=== PATIENT | male | born 1940 | race Caucasian/White ===

== ENCOUNTER 2019-11-14 12:21 | Emergency (ER) | payer OTHER ==
[~2019-11-14] VITALS: Ht 180.3 cm; Wt 72.6 kg
[~2019-11-14 12:21] MED LIST: ALDACTONE50 MG PO; CARAFATE1 GM; CARAFATE1 GM/10 ML PO; CRESTOR10 MG PO; DYAZIDE 37.5-21 EACH; HYDROCODON-ACE1 EAC9; NAPROXEN500 MG PO; PANTOPRAZOLE SO40 MG PO; PROPRANOLOL HCL10 MG PO; PROTONIX40 MG; ULTRAM 50MG50 MG PO
--- NOTE | 2019-11-14 14:22 | Diagnostic Imaging Report ---
EXAMINATION: CHEST SINGLE (PORTABLE) INDICATION: Cough/congestion COMPARISON: None FINDINGS: TUBES and LINES: None. LUNGS: Lungs are well inflated. There are bibasilar atelectasis. There is no evidence of pneumonia or pulmonary edema. PLEURA: No pleural effusion or pneumothorax. HEART AND MEDIASTINUM: The cardiomediastinal silhouette is unremarkable. BONES AND SOFT TISSUES: No acute osseous lesion. Soft tissues are unremarkable. UPPER ABDOMEN: No free air under the diaphragm. IMPRESSION: No acute thoracic abnormality. Signed by: Dr. Dayami Bray M.D. on 11/14/2019 2:20 PM
[2019-11-14] MEDS ORDERED: SODIUM CHLORIDE 0.9% 1000ML 1,000 ML IV SCH (14:31)
[2019-11-14] MEDS: IPRATROPIUM BROMIDE 0.02% 2.5 ML NEB NEB STA (14:48)
[2019-11-14] MEDS: ALBUTEROL SULF 0.083% NEB SOLN 3 ML NEB NEB STA (14:48)
[2019-11-14] MEDS: SODIUM CHLORIDE 0.9% 1000ML 1,000 ML IV STA (15:25)
[2019-11-14] MEDS: FAMOTIDINE 20 MG/2 ML VIAL IV ONE (15:25)
[2019-11-14] MEDS: ACETAMINOPHEN 325 MG TAB PO ONE (15:25)
[2019-11-14] MEDS: KETOROLAC TROMETHAMINE 30 MG/ML VIAL IV ONE (15:25)
[2019-11-14] MEDS: AZTREONAM 2GM/NS 100ML 100 ML IV ONE (15:26)
[2019-11-14 15:45] LABS: BASOPHILS % 0.3 % (0.0-1.0); EOSINOPHILS # (AUTO) 0.4 (0.0-0.4); EOSINOPHILS % 6.3 % (0.0-6.0); HEMOGLOBIN 13.8 g/dL (14.0-18.0); LYMPHOCYTES # (AUTO) 2.1 (1.0-3.2); LYMPHOCYTES % 31.3 % (18.0-39.1); MEAN CORPUSCULAR HEMOGLOBIN 36.6 pg (28-32); MEAN CORPUSCULAR HGB CONC 34.5 g/dL (31-35); MEAN CORPUSCULAR VOLUME 106.1 fL (81-99); MONOCYTES # (AUTO) 0.6 (0.2-0.8); MONOCYTES % 9.2 % (4.4-11.3); NEUTROPHILS # (AUTO) 3.5 (2.1-6.9); NEUTROPHILS % 52.4 % (38.7-80.0); PLATELET COUNT 82 x10e3/uL (140-360); RED BLOOD COUNT 3.77 x10e6/uL (4.3-5.7); RED CELL DISTRIBUTION WIDTH 13.8 % (11.7-14.4)
[2019-11-14 16:03] LABS: ALANINE AMINOTRANSFERASE 32 IU/L (0-55); ALBUMIN 3.1 g/dL (3.5-5.0); ALBUMIN/GLOBULIN RATIO 0.8 (0.8-2.0); ALKALINE PHOSPHATASE 122 IU/L (40-150); ANION GAP 13.6 mmol/L (8-16); BLOOD UREA NITROGEN 6 mg/dL (7-26); BUN/CREATININE RATIO 8 (6-25); CARBON DIOXIDE 23 mmol/L (22-29); CHLORIDE 107 mmol/L (98-107); CREATININE, SERUM 0.76 mg/dL (0.72-1.25); EST GLOMERULAR FILTRATION RATE > 60 ML/MIN (60-); GLUCOSE 93 mg/dL (74-118); POTASSIUM 3.6 mmol/L (3.5-5.1); SODIUM 140 mmol/L (136-145)
== END 2019-11-14 17:29 | disposition home or self-care (01) ==
LOC: ER 12:21
DX: R05 Cough (principal); J20.9 Acute bronchitis, unspecified; J06.9 Acute upper respiratory infection, unspecified
CPT/HCPCS: 36415; 71045; 80053; 85025; 87400; 94640; 94664; 99284; J1885; J7030

== ENCOUNTER 2020-06-27 21:58 | Inpatient (IN) | payer OTHER ==
[~2020-06-27] VITALS: Ht 180.3 cm; Wt 72.6 kg
[2020-06-27] MEDS ORDERED: VANCOMYCIN 1GM/NS 250 ML 250 ML IV ONE (23:15)
[2020-06-27] MEDS ORDERED: LEVOFLOXACIN 500MG/D5W 100ML 100 ML IV ONE (23:15)
[2020-06-27 23:38] LABS: BASOPHILS # (AUTO) 0.1 (0.0-0.1); BASOPHILS % 0.8 % (0.0-1.0); EOSINOPHILS # (AUTO) 0.3 (0.0-0.4); EOSINOPHILS % 5.3 % (0.0-6.0); HEMATOCRIT 34.7 % (38.2-49.6); HEMOGLOBIN 11.8 g/dL (14.0-18.0); LYMPHOCYTES # (AUTO) 1.2 (1.0-3.2); LYMPHOCYTES % 19.5 % (18.0-39.1); MEAN CORPUSCULAR HEMOGLOBIN 35.8 pg (28-32); MEAN CORPUSCULAR VOLUME 105.2 fL (81-99); MONOCYTES # (AUTO) 0.6 (0.2-0.8); MONOCYTES % 9.1 % (4.4-11.3); NEUTROPHILS # (AUTO) 3.9 (2.1-6.9); NEUTROPHILS % 64.8 % (38.7-80.0); PLATELET COUNT 62 x10e3/uL (140-360); RED CELL DISTRIBUTION WIDTH 14.5 % (11.7-14.4)
[2020-06-27] MEDS ORDERED: MORPHINE SULFATE INJ 4 MG/ML INJ 1ML IV STA (23:52)
[2020-06-27 23:59] LABS: ALANINE AMINOTRANSFERASE 21 IU/L (0-55); ALBUMIN 3.2 g/dL (3.5-5.0); ALBUMIN/GLOBULIN RATIO 1.2 (0.8-2.0); ALKALINE PHOSPHATASE 99 IU/L (40-150); BLOOD UREA NITROGEN 10 mg/dL (7-26); BUN/CREATININE RATIO 12 (6-25); CALCIUM 9.2 mg/dL (8.4-10.2); CARBON DIOXIDE 24 mmol/L (22-29); CHLORIDE 109 mmol/L (98-107); CREATININE, SERUM 0.82 mg/dL (0.72-1.25); EST GLOMERULAR FILTRATION RATE > 60 ML/MIN (60-); GLUCOSE 118 mg/dL (74-118); SODIUM 138 mmol/L (136-145)
[2020-06-28] VITALS (9 sets, daily range): BP systolic 101–160; BP diastolic 60–99
[2020-06-28] MEDS ORDERED: ONDANSETRON HCL 4 MG ORAL DISINTEGRATING TAB PO ONE
[2020-06-28] MEDS: CLINDAMYCIN 600MG / 50ML 50 ML IV SCH ×4 (00:58→22:17)
[2020-06-28] MEDS ORDERED: ONDANSETRON HCL INJ 2MG/ML 2ML 2 MG/ML VIAL IV PRN (01:30)
[2020-06-28] MEDS ORDERED: SODIUM CHLORIDE FLUSH 10 ML SYR INJ PRN (01:30)
[2020-06-28] MEDS ORDERED: LEVOFLOXACIN 500MG/D5W 100ML 100 ML IV SCH ×2 (01:30→21:00)
[2020-06-28] MEDS: MORPHINE SULFATE INJ 4 MG/ML INJ 1ML IV PRN ×2 (05:00→14:18)
[2020-06-28] MEDS ORDERED: SODIUM CHLORIDE 0.9% 250ML 250 ML ONE (06:50)
[2020-06-28] MEDS: PROPRANOLOL HCL 10 MG TAB PO SCH ×2 (10:06→16:50)
[2020-06-28] MEDS: PANTOPRAZOLE SOD 40 MG TABEC PO SCH (10:06)
[2020-06-28] MEDS: HYDROCODONE/APAP 10MG-325MG TAB PO PRN (10:07)
[2020-06-28] MEDS: AZTREONAM 1 GM/NS 50 ML 50 ML IV SCH ×2 (10:31→21:38)
[2020-06-28] MEDS: SUCRALFATE 1 GM/10 ML SUSP PO SCH ×3 (12:25→20:16)
[2020-06-28] MEDS: SIMVASTATIN 20 MG TAB PO SCH (20:16)
[2020-06-29] VITALS (7 sets, daily range): BP systolic 102–132; BP diastolic 50–83
[2020-06-29] MEDS: ACETAMINOPHEN 325 MG TAB PO PRN (05:29)
[2020-06-29] MEDS: CLINDAMYCIN 600MG / 50ML 50 ML IV SCH ×3 (05:29→20:46)
[2020-06-29 06:41] LABS: BASOPHILS % 0.6 % (0.0-1.0); EOSINOPHILS # (AUTO) 0.3 (0.0-0.4); EOSINOPHILS % 5.5 % (0.0-6.0); HEMATOCRIT 31.3 % (38.2-49.6); HEMOGLOBIN 10.6 g/dL (14.0-18.0); LYMPHOCYTES # (AUTO) 1.8 (1.0-3.2); LYMPHOCYTES % 28.7 % (18.0-39.1); MEAN CORPUSCULAR HEMOGLOBIN 36.7 pg (28-32); MEAN CORPUSCULAR HGB CONC 33.9 g/dL (31-35); MEAN CORPUSCULAR VOLUME 108.3 fL (81-99); MONOCYTES # (AUTO) 0.6 (0.2-0.8); MONOCYTES % 10.3 % (4.4-11.3); NEUTROPHILS # (AUTO) 3.4 (2.1-6.9); NEUTROPHILS % 54.6 % (38.7-80.0); PLATELET COUNT 60 x10e3/uL (140-360); RED BLOOD COUNT 2.89 x10e6/uL (4.3-5.7); RED CELL DISTRIBUTION WIDTH 14.7 % (11.7-14.4)
[2020-06-29] MEDS ORDERED: SODIUM CHLORIDE 0.9% 250ML 250 ML ONE (07:29)
[2020-06-29] MEDS: PANTOPRAZOLE SOD 40 MG TABEC PO SCH (08:54)
[2020-06-29] MEDS: SUCRALFATE 1 GM/10 ML SUSP PO SCH ×4 (08:54→20:20)
[2020-06-29] MEDS: PROPRANOLOL HCL 10 MG TAB PO SCH ×2 (08:55→16:26)
[2020-06-29] MEDS: AZTREONAM 1 GM/NS 50 ML 50 ML IV SCH ×2 (08:55→20:20)
[2020-06-29 10:55] LABS: PLATELET ESTIMATE MODERATELY DECREASED; PLATELET MORPHOLOGY COMMENT NORMAL; POLYCHROMASIA FEW; RBC MORPHOLOGY COMMENT ABNORMAL
[2020-06-29] MEDS: HYDROCODONE/APAP 10MG-325MG TAB PO PRN (11:38)
[2020-06-29] MEDS ORDERED: ONDANSETRON HCL 4 MG ORAL DISINTEGRATING TAB PO PRN (14:30)
[2020-06-29] MEDS: SIMVASTATIN 20 MG TAB PO SCH (20:20)
[2020-06-30] VITALS (8 sets, daily range): BP systolic 91–146; BP diastolic 49–71
[2020-06-30] MEDS: CLINDAMYCIN 600MG / 50ML 50 ML IV SCH ×3 (05:42→22:10)
[2020-06-30] MEDS: SUCRALFATE 1 GM/10 ML SUSP PO SCH ×4 (08:45→20:45)
[2020-06-30] MEDS: PROPRANOLOL HCL 10 MG TAB PO SCH ×2 (08:45→16:55)
[2020-06-30] MEDS: PANTOPRAZOLE SOD 40 MG TABEC PO SCH (08:45)
[2020-06-30] MEDS: HYDROCODONE/APAP 10MG-325MG TAB PO PRN (09:15)
[2020-06-30] MEDS ORDERED: ALBUTEROL/IPRATROPIUM 3 ML NEB NEB PRN (09:30)
[2020-06-30] MEDS: AZTREONAM 1 GM/NS 50 ML 50 ML IV SCH ×2 (09:44→20:46)
[2020-06-30] MEDS ORDERED: IOPAMIDOL 370 MG/ML 200 ML INFUS..BTL INJ ONE (12:04)
[2020-06-30] MEDS ORDERED: SODIUM CHLORIDE 0.9% 50ML 50 ML ONE (12:04)
[2020-06-30] MEDS: MORPHINE SULFATE INJ 4 MG/ML INJ 1ML IV PRN ×2 (15:10→22:11)
[2020-06-30] MEDS: DOXYCYCLINE HYCLATE TABLET 100 MG TAB PO SCH (17:00)
[2020-06-30] MEDS: SIMVASTATIN 20 MG TAB PO SCH (20:45)
[2020-07-01] VITALS (9 sets, daily range): BP systolic 66–135; BP diastolic 41–75
[2020-07-01] MEDS: ACETAMINOPHEN 325 MG TAB PO PRN (00:10)
[2020-07-01] MEDS: CLINDAMYCIN 600MG / 50ML 50 ML IV SCH (04:47)
[2020-07-01 06:06] LABS: BASOPHILS % 0.6 % (0.0-1.0); EOSINOPHILS # (AUTO) 0.4 (0.0-0.4); EOSINOPHILS % 4.8 % (0.0-6.0); HEMATOCRIT 33.6 % (38.2-49.6); HEMOGLOBIN 11.1 g/dL (14.0-18.0); LYMPHOCYTES # (AUTO) 2.1 (1.0-3.2); LYMPHOCYTES % 29.5 % (18.0-39.1); MEAN CORPUSCULAR HEMOGLOBIN 36.2 pg (28-32); MEAN CORPUSCULAR VOLUME 109.4 fL (81-99); MONOCYTES # (AUTO) 0.8 (0.2-0.8); MONOCYTES % 11.1 % (4.4-11.3); NEUTROPHILS # (AUTO) 3.9 (2.1-6.9); NEUTROPHILS % 53.4 % (38.7-80.0); PLATELET COUNT 84 x10e3/uL (140-360); RED BLOOD COUNT 3.07 x10e6/uL (4.3-5.7); RED CELL DISTRIBUTION WIDTH 14.9 % (11.7-14.4)
[2020-07-01 06:28] LABS: ANION GAP 8.1 mmol/L (8-16); BLOOD UREA NITROGEN 16 mg/dL (7-26); BUN/CREATININE RATIO 19 (6-25); CARBON DIOXIDE 23 mmol/L (22-29); CHLORIDE 111 mmol/L (98-107); CREATININE, SERUM 0.86 mg/dL (0.72-1.25); EST GLOMERULAR FILTRATION RATE > 60 ML/MIN (60-); GLUCOSE 104 mg/dL (74-118); POTASSIUM 4.1 mmol/L (3.5-5.1); SODIUM 138 mmol/L (136-145)
[2020-07-01] MEDS ORDERED: SODIUM CHLORIDE 0.9% 500ML 500 ML IV ONE ×2 (06:40→06:45)
[2020-07-01] MEDS: SUCRALFATE 1 GM/10 ML SUSP PO SCH (07:30)
[2020-07-01] MEDS: PANTOPRAZOLE SOD 40 MG TABEC PO SCH (09:00)
[2020-07-01] MEDS: DOXYCYCLINE HYCLATE TABLET 100 MG TAB PO SCH ×2 (09:00→16:42)
[2020-07-01] MEDS ORDERED: SPIRONOLACTONE 25 MG TAB PO SCH (09:00)
[2020-07-01] MEDS ORDERED: FUROSEMIDE INJ 10 MG/ML 4 ML VIAL IV SCH (09:00)
[2020-07-01] MEDS: PROPRANOLOL HCL 10 MG TAB PO SCH (09:00)
[2020-07-01] MEDS: SPIRONOLACTONE 25 MG TAB PO SCH (10:00)
[2020-07-01] MEDS: FUROSEMIDE 20 MG TAB PO SCH (10:00)
[2020-07-01] MEDS: LACTOBACILLUS ACIDOPHILUS CAPSULE PO SCH ×3 (11:30→20:00)
[2020-07-01] MEDS: TRAMADOL HCL 50 MG TAB PO PRN (12:05)
[2020-07-01] MEDS: CLINDAMYCIN HCL 150 MG CAP PO SCH ×2 (14:00→21:55)
[2020-07-01] MEDS ORDERED: IOPAMIDOL 370 MG/ML 200 ML INFUS..BTL INJ ONE (16:26)
[2020-07-01] MEDS ORDERED: SODIUM CHLORIDE 0.9% 50ML 0 ML ONE (16:26)
[2020-07-01] MEDS: CELECOXIB 100 MG CAP PO SCH (16:42)
[2020-07-01] MEDS ORDERED: PROPRANOLOL HCL 10 MG TAB PO SCH (17:00)
[2020-07-02] VITALS (8 sets, daily range): BP systolic 127–164; BP diastolic 42–57
[2020-07-02] MEDS: CLINDAMYCIN HCL 150 MG CAP PO SCH ×2 (05:01→14:47)
[2020-07-02] MEDS: ACETAMINOPHEN 325 MG TAB PO PRN (05:34)
[2020-07-02] MEDS: DOXYCYCLINE HYCLATE TABLET 100 MG TAB PO SCH (09:10)
[2020-07-02] MEDS: FUROSEMIDE 20 MG TAB PO SCH (09:10)
[2020-07-02] MEDS: PANTOPRAZOLE SOD 40 MG TABEC PO SCH (09:10)
[2020-07-02] MEDS: CELECOXIB 100 MG CAP PO SCH ×2 (09:11→17:42)
[2020-07-02] MEDS: LACTOBACILLUS ACIDOPHILUS CAPSULE PO SCH ×2 (09:11→14:47)
[2020-07-02] MEDS: CEFTRIAXONE SOD 1 GM/NS 50 ML 50 ML IV SCH (12:30)
[2020-07-02] MEDS ORDERED: AZITHROMYCIN 250 MG TAB PO ONE (16:45)
[2020-07-02] MEDS: ALBUTEROL/IPRATROPIUM 3 ML NEB NEB SCH (19:00)
[2020-07-03] VITALS (7 sets, daily range): BP systolic 135–151; BP diastolic 51–64
[2020-07-03] MEDS: ALBUTEROL/IPRATROPIUM 3 ML NEB NEB SCH ×4 (01:05→19:33)
[2020-07-03] MEDS: LACTOBACILLUS ACIDOPHILUS CAPSULE PO SCH ×4 (01:16→20:30)
[2020-07-03] MEDS: CLINDAMYCIN HCL 150 MG CAP PO SCH ×4 (01:16→21:00)
[2020-07-03] MEDS: TRAMADOL HCL 50 MG TAB PO PRN ×2 (01:18→23:35)
[2020-07-03] MEDS: PANTOPRAZOLE SOD 40 MG TABEC PO SCH (08:44)
[2020-07-03] MEDS: AZITHROMYCIN 250 MG TAB PO SCH (08:44)
[2020-07-03] MEDS: FUROSEMIDE 20 MG TAB PO SCH (08:44)
[2020-07-03] MEDS: CELECOXIB 100 MG CAP PO SCH ×2 (08:44→17:33)
[2020-07-03] MEDS ORDERED: SODIUM CHLORIDE 0.9% 50ML 50 ML ONE (11:09)
[2020-07-03] MEDS ORDERED: GADOBENATE DIMEGLUMINE 1 ML IV ONE (11:10)
[2020-07-03] MEDS: CEFTRIAXONE SOD 1 GM/NS 50 ML 50 ML IV SCH (12:36)
[2020-07-03 16:08] LABS: ALPHA-1-ANTITRYPSIN 137 mg/dL (101-187)
[2020-07-04] VITALS: BP 163/62
[2020-07-04] MEDS: ALBUTEROL/IPRATROPIUM 3 ML NEB NEB SCH ×2 (00:10→07:00)
[2020-07-04 01:11] VITALS: BP 163/62
[2020-07-04] MEDS: CLINDAMYCIN HCL 150 MG CAP PO SCH (05:42)
[2020-07-04 05:47] LABS: BASOPHILS # (AUTO) 0.1 (0.0-0.1); BASOPHILS % 0.9 % (0.0-1.0); EOSINOPHILS # (AUTO) 0.5 (0.0-0.4); EOSINOPHILS % 9.9 % (0.0-6.0); HEMATOCRIT 31.5 % (38.2-49.6); HEMOGLOBIN 10.9 g/dL (14.0-18.0); LYMPHOCYTES # (AUTO) 1.8 (1.0-3.2); LYMPHOCYTES % 33.2 % (18.0-39.1); MEAN CORPUSCULAR HEMOGLOBIN 36.9 pg (28-32); MEAN CORPUSCULAR HGB CONC 34.6 g/dL (31-35); MEAN CORPUSCULAR VOLUME 106.8 fL (81-99); MONOCYTES # (AUTO) 0.6 (0.2-0.8); MONOCYTES % 10.5 % (4.4-11.3); NEUTROPHILS # (AUTO) 2.4 (2.1-6.9); NEUTROPHILS % 45.1 % (38.7-80.0); PLATELET COUNT 85 x10e3/uL (140-360); RED BLOOD COUNT 2.95 x10e6/uL (4.3-5.7); RED CELL DISTRIBUTION WIDTH 14.7 % (11.7-14.4)
[2020-07-04 06:13] LABS: ALANINE AMINOTRANSFERASE 18 IU/L (0-55); ALBUMIN 2.1 g/dL (3.5-5.0); ALBUMIN/GLOBULIN RATIO 0.8 (0.8-2.0); ALKALINE PHOSPHATASE 61 IU/L (40-150); ANION GAP 9.9 mmol/L (8-16); BLOOD UREA NITROGEN 12 mg/dL (7-26); BUN/CREATININE RATIO 16 (6-25); CALCIUM 7.7 mg/dL (8.4-10.2); CARBON DIOXIDE 23 mmol/L (22-29); CHLORIDE 109 mmol/L (98-107); CREATININE, SERUM 0.73 mg/dL (0.72-1.25); EST GLOMERULAR FILTRATION RATE > 60 ML/MIN (60-); GLUCOSE 84 mg/dL (74-118); POTASSIUM 3.9 mmol/L (3.5-5.1); SODIUM 138 mmol/L (136-145)
[2020-07-04 07:58] VITALS: BP 156/57
[2020-07-04 08:27] VITALS: BP 156/57
[2020-07-04] MEDS: AZITHROMYCIN 250 MG TAB PO SCH (09:30)
[2020-07-04] MEDS: CELECOXIB 100 MG CAP PO SCH (09:30)
[2020-07-04] MEDS: PANTOPRAZOLE SOD 40 MG TABEC PO SCH (09:30)
[2020-07-04] MEDS: LACTOBACILLUS ACIDOPHILUS CAPSULE PO SCH (09:30)
[2020-07-04] MEDS: FUROSEMIDE 20 MG TAB PO SCH (09:30)
[2020-07-04 10:15] LABS: ANISOCYTOSIS SLIGHT; OVALOCYTES FEW; PLATELET ESTIMATE MODERATELY DECREASED; PLATELET MORPHOLOGY COMMENT NORMAL; RBC MORPHOLOGY COMMENT ABNORMAL
[2020-07-04] MEDS ORDERED: TETANUS/DIPHTHERIA TOX ADULT 0.5 ML SYR IM ONE (10:15)
[2020-07-04] MEDS ORDERED: PNEUMOCOCCAL VACCINE POLYVALENT 23 MCG/0.5 ML VIAL IM ONE (10:15)
[2020-07-04] MEDS ORDERED: LEVOFLOXACIN 500 MG TAB PO ONE (10:30)
[2020-07-04 12:02] VITALS: BP 149/51
== END 2020-07-04 13:08 | disposition home or self-care (01) | DRG 602 ==
LOC: ER 23:20 → ERHOLD 06-28 01:19 → MED/SURG2 06-28 04:36
PROVIDERS: ADMIT Internal Medicine; ATTEND Internal Medicine
DX: L03.113 Cellulitis of right upper limb (principal); J18.9 Pneumonia, unspecified organism; K76.6 Portal hypertension; S41.151A Open bite of right upper arm, initial encounter; K74.60 Unspecified cirrhosis of liver; D69.59 Other secondary thrombocytopenia; R16.1 Splenomegaly, not elsewhere classified
CPT/HCPCS: 36415; 71046; 71260; 74177; 74183; 76700; 80048; 80053; 82103; 82378; 82390; 82607; 82746; 83605; 83880; 84443; 85025; 85651; 86021; 86039; 86255; 86706; 86803; 87040; 87070; 87116; 87205; 87206; 87340; 90714; 90732; 93306; 94640; 99251; 99284; J0696; J1940; J1956; J2270; J2405; J3370; J7040; J7050; Q0162; Q9967; U0002

== ENCOUNTER 2021-07-06 15:28 | Inpatient (IN) | payer MEDICARE, OTHER ==
[~2021-07-06] VITALS: Ht 180.3 cm; Wt 64.1 kg
[2021-07-06 15:52] LABS: BASOPHILS % 0.3 % (0.0-1.0); EOSINOPHILS # (AUTO) 0.4 (0.0-0.4); EOSINOPHILS % 6.1 % (0.0-6.0); LYMPHOCYTES # (AUTO) 1.4 (1.0-3.2); LYMPHOCYTES % 23.4 % (18.0-39.1); MEAN CORPUSCULAR HEMOGLOBIN 37.9 pg (28-32); MEAN CORPUSCULAR HGB CONC 31.6 g/dL (31-35); MEAN CORPUSCULAR VOLUME 120.1 fL (81-99); MONOCYTES # (AUTO) 0.7 (0.2-0.8); MONOCYTES % 10.9 % (4.4-11.3); NEUTROPHILS # (AUTO) 3.6 (2.1-6.9); PLATELET COUNT 83 x10e3/uL (140-360); RED BLOOD COUNT 1.74 x10e6/uL (4.3-5.7); RED CELL DISTRIBUTION WIDTH 18.7 % (11.7-14.4)
[2021-07-06 15:54] LABS: HEMATOCRIT 20.9 % (38.2-49.6); HEMOGLOBIN 6.6 g/dL (14.0-18.0)
[2021-07-06 16:11] LABS: ALBUMIN 2.4 g/dL (3.5-5.0); ALBUMIN/GLOBULIN RATIO 0.7 (0.8-2.0); ANION GAP 12.2 mmol/L (8-16); CALCIUM 7.8 mg/dL (8.4-10.2); CREATININE, SERUM 0.82 mg/dL (0.72-1.25); POTASSIUM 4.2 mmol/L (3.5-5.1)
[2021-07-06] MEDS ORDERED: FUROSEMIDE INJ 10 MG/ML 2 ML VIAL IV ONE ×2 (16:15→22:00)
[2021-07-06 16:18] LABS: CREATINE KINASE MB 10.7 ng/mL (0-5.0)
[2021-07-06 16:38] LABS: INR 1.93; PROTHROMBIN TIME 22.4 seconds (11.9-14.5)
[2021-07-06] MEDS ORDERED: SODIUM CHLORIDE 0.9% 250ML 250 ML ONE ×2 (17:40→22:57)
[2021-07-06 19:57] VITALS: BP 107/58
[2021-07-06 23:16] VITALS: BP 107/58
[2021-07-07] MEDS ORDERED: ONDANSETRON HCL INJ 2MG/ML 2ML 2 MG/ML VIAL IV PRN (00:15)
[2021-07-07] MEDS: TRAMADOL HCL 50 MG TAB PO PRN (00:15)
[2021-07-07] MEDS ORDERED: DEXTROSE 50% SYRINGE 50 ML IV PRN (01:30)
[2021-07-07] MEDS ORDERED: HYDRALAZINE HCL 20 MG/ML VIAL IV PRN (01:30)
[2021-07-07] MEDS ORDERED: ALBUTEROL/IPRATROPIUM 3 ML NEB NEB PRN (01:30)
[2021-07-07] MEDS ORDERED: BENZONATATE 100 MG CAP PO PRN (01:30)
[2021-07-07] MEDS ORDERED: MELATONIN 5 MG TABLET PO PRN (01:30)
[2021-07-07] MEDS ORDERED: DIPHENHYDRAMINE HCL 25 MG CAP PO PRN (01:30)
[2021-07-07] MEDS ORDERED: POTASSIUM CHLORIDE 20 MEQ TAB CR PO PRN (01:30)
[2021-07-07] MEDS ORDERED: ACETAMINOPHEN 325 MG TAB PO PRN (01:30)
[2021-07-07] MEDS ORDERED: DOCUSATE SODIUM 100 MG CAP PO PRN (01:30)
[2021-07-07] MEDS: SODIUM BICARBONATE 650 MG TAB PO SCH ×3 (01:30→17:19)
[2021-07-07] MEDS ORDERED: SIMETHICONE 80 MG CHEW PO PRN (01:30)
[2021-07-07 05:26] VITALS: BP 104/63
[2021-07-07 06:23] LABS: BASOPHILS % 0.8 % (0.0-1.0); EOSINOPHILS # (AUTO) 0.4 (0.0-0.4); EOSINOPHILS % 7.6 % (0.0-6.0); HEMATOCRIT 25.2 % (38.2-49.6); HEMOGLOBIN 8.6 g/dL (14.0-18.0); LYMPHOCYTES % 21.3 % (18.0-39.1); MEAN CORPUSCULAR HEMOGLOBIN 35.8 pg (28-32); MEAN CORPUSCULAR HGB CONC 34.1 g/dL (31-35); MONOCYTES # (AUTO) 0.4 (0.2-0.8); NEUTROPHILS % 60.9 % (38.7-80.0); PLATELET COUNT 57 x10e3/uL (140-360); RED CELL DISTRIBUTION WIDTH 23.7 % (11.7-14.4)
[2021-07-07] MEDS: LIDOCAINE 4% PATCH TP PRN (06:43)
[2021-07-07 06:50] LABS: ALBUMIN 2.2 g/dL (3.5-5.0); ALBUMIN/GLOBULIN RATIO 0.7 (0.8-2.0); ANION GAP 11.5 mmol/L (8-16); CALCIUM 7.4 mg/dL (8.4-10.2); CREATININE, SERUM 0.74 mg/dL (0.72-1.25); POTASSIUM 3.5 mmol/L (3.5-5.1)
[2021-07-07 07:35] VITALS: BP 129/59
[2021-07-07 07:40] VITALS: BP 129/59
[2021-07-07] MEDS ORDERED: LASIX20 MG PO (09:25)
[2021-07-07 12:00] VITALS: BP 121/46
[2021-07-07] MEDS ORDERED: PHYTONADIONE 10 MG/ML AMP SQ ONE (12:00)
[2021-07-07] MEDS ORDERED: MULTIVITAMINS- 12 INJECTION 10 ML, FOLIC ACID MDV 1 MG, THIAMINE HCL INJ 100 MG in SODI... IV ONE (12:30)
[2021-07-07] MEDS ORDERED: LIDOCAINE 4% PATCH TP ONE (15:00)
[2021-07-07 16:00] VITALS: BP 92/67
[2021-07-07] MEDS: LACTULOSE SYRUP 20 GM/30 ML UDC PO SCH (17:19)
[2021-07-07 20:00] VITALS: BP 101/87
[2021-07-07] MEDS ORDERED: LORAZEPAM 0.5 MG TAB PO ONE (22:45)
[2021-07-08] VITALS (8 sets, daily range): BP systolic 115–166; BP diastolic 45–73
[2021-07-08 05:58] LABS: BASOPHILS % 0.3 % (0.0-1.0); EOSINOPHILS % 0.4 % (0.0-6.0); HEMATOCRIT 27.2 % (38.2-49.6); HEMOGLOBIN 8.6 g/dL (14.0-18.0); LYMPHOCYTES % 14.8 % (18.0-39.1); MEAN CORPUSCULAR HGB CONC 31.6 g/dL (31-35); MEAN CORPUSCULAR VOLUME 110.6 fL (81-99); MONOCYTES # (AUTO) 0.3 (0.2-0.8); MONOCYTES % 4.1 % (4.4-11.3); NEUTROPHILS # (AUTO) 5.5 (2.1-6.9); PLATELET COUNT 58 x10e3/uL (140-360); RED BLOOD COUNT 2.46 x10e6/uL (4.3-5.7); RED CELL DISTRIBUTION WIDTH 24.2 % (11.7-14.4)
[2021-07-08 06:36] LABS: ALBUMIN 2.1 g/dL (3.5-5.0); ALBUMIN/GLOBULIN RATIO 0.7 (0.8-2.0); ANION GAP 12.6 mmol/L (8-16); CALCIUM 7.5 mg/dL (8.4-10.2); CREATININE, SERUM 0.83 mg/dL (0.72-1.25); POTASSIUM 3.6 mmol/L (3.5-5.1)
[2021-07-08 08:03] LABS: FERRITIN 131.28 ng/mL (21.81-274.66)
[2021-07-08] MEDS: LACTULOSE SYRUP 20 GM/30 ML UDC PO SCH ×2 (09:00→17:22)
[2021-07-08] MEDS: SODIUM BICARBONATE 650 MG TAB PO SCH ×2 (09:00→17:21)
[2021-07-08 09:03] LABS: ANISOCYTOSIS MODERATE; BAND NEUTROPHILS % (MANUAL) 4 %; LYMPHOCYTES % (MANUAL) 10 % (19-48); PLATELET ESTIMATE MODERATELY DECREASED
[2021-07-08 09:04] LABS: OVALOCYTES FEW; POLYCHROMASIA FEW; TEAR DROP CELLS FEW
[2021-07-08 09:05] LABS: BURR CELLS SLIGHT
[2021-07-08 09:06] LABS: PLATELET MORPHOLOGY COMMENT RARE EDTA CLUMPING; RBC MORPHOLOGY COMMENT ABNORMAL
[2021-07-08 09:07] LABS: MONOCYTES % (MANUAL) 1 % (3.4-9.0); NEUTROPHILS % (MANUAL) 85 % (40-74)
[2021-07-08] MEDS: HYDROCORTISONE ACETATE 25 MG/SUPP.RECT SUPP RC SCH ×2 (10:00→18:16)
[2021-07-08] MEDS: RIFAXIMIN 550 MG TABLET PO SCH ×2 (10:00→17:21)
[2021-07-08] MEDS: FOLIC ACID 1 MG TAB PO SCH (10:00)
[2021-07-08] MEDS: THIAMINE HCL 100 MG TAB PO SCH (10:00)
[2021-07-08] MEDS: TRAMADOL HCL 50 MG TAB PO PRN (10:20)
[2021-07-08] MEDS ORDERED: BISACODYL 5 MG TAB EC PO ONE ×2 (20:45→21:30)
[2021-07-08] MEDS ORDERED: PHYTONADIONE 10 MG/ML AMP IV ONE (20:45)
[2021-07-08] MEDS ORDERED: PHYTONADIONE 10MG/ML 20 MG in SODIUM CHLORIDE 0.9% 100 ML SC ONE (21:00)
[2021-07-08] MEDS ORDERED: PHYTONADIONE 10MG/ML 20 MG in SODIUM CHLORIDE 0.9% 100 ML IV ONE (21:15)
[2021-07-08] MEDS ORDERED: CITRATE OF MAGNESIA 300ML BOTTLE PO ONE (23:30)
[2021-07-09] VITALS: BP 133/57
[2021-07-09 04:00] VITALS: BP 124/54
[2021-07-09] MEDS ORDERED: CITRATE OF MAGNESIA 300ML BOTTLE PO ONE (05:00)
[2021-07-09 05:01] LABS: BASOPHILS % 0.2 % (0.0-1.0); EOSINOPHILS % 0.7 % (0.0-6.0); HEMATOCRIT 25.3 % (38.2-49.6); HEMOGLOBIN 8.5 g/dL (14.0-18.0); LYMPHOCYTES % 16.8 % (18.0-39.1); MEAN CORPUSCULAR HEMOGLOBIN 35.1 pg (28-32); MEAN CORPUSCULAR HGB CONC 33.6 g/dL (31-35); MEAN CORPUSCULAR VOLUME 104.5 fL (81-99); MONOCYTES # (AUTO) 0.4 (0.2-0.8); MONOCYTES % 6.6 % (4.4-11.3); NEUTROPHILS # (AUTO) 4.5 (2.1-6.9); PLATELET COUNT 51 x10e3/uL (140-360); RED BLOOD COUNT 2.42 x10e6/uL (4.3-5.7); RED CELL DISTRIBUTION WIDTH 23.6 % (11.7-14.4)
[2021-07-09 05:23] LABS: INR 2.59; PROTHROMBIN TIME 28.6 seconds (11.9-14.5)
[2021-07-09 05:47] LABS: ALBUMIN/GLOBULIN RATIO 0.6 (0.8-2.0); ANION GAP 10.4 mmol/L (8-16); CALCIUM 7.5 mg/dL (8.4-10.2); CREATININE, SERUM 0.9 mg/dL (0.72-1.25); POTASSIUM 3.4 mmol/L (3.5-5.1)
[2021-07-09 07:52] VITALS: BP 86/52
[2021-07-09 08:00] VITALS: BP 86/52
[2021-07-09] MEDS ORDERED: SODIUM CHLORIDE 0.9% 500ML 500 ML IV ONE (08:30)
[2021-07-09] MEDS: FOLIC ACID 1 MG TAB PO SCH (08:47)
[2021-07-09] MEDS: THIAMINE HCL 100 MG TAB PO SCH (08:47)
[2021-07-09] MEDS: HYDROCORTISONE ACETATE 25 MG/SUPP.RECT SUPP RC SCH (08:47)
[2021-07-09] MEDS: SODIUM BICARBONATE 650 MG TAB PO SCH (08:47)
[2021-07-09] MEDS: RIFAXIMIN 550 MG TABLET PO SCH (08:47)
[2021-07-09] MEDS: LACTULOSE SYRUP 20 GM/30 ML UDC PO SCH (08:47)
[2021-07-09 08:58] LABS: BAND NEUTROPHILS % (MANUAL) 1 %; EOSINOPHILS % (MANUAL) 2 % (0-7); LYMPHOCYTES % (MANUAL) 17 % (19-48); MONOCYTES % (MANUAL) 2 % (3.4-9.0); NEUTROPHILS % (MANUAL) 78 % (40-74)
[2021-07-09 08:59] LABS: PLATELET ESTIMATE MODERATELY DECREASED; PLATELET MORPHOLOGY COMMENT NORMAL; RBC MORPHOLOGY COMMENT NORMAL
[2021-07-09] MEDS ORDERED: DEXTROSE 5%/0.9% SOD CHL 1,000 ML IV SCH (09:00)
[2021-07-09] MEDS: LIDOCAINE 4% PATCH TP PRN (10:08)
[2021-07-09 11:22] VITALS: BP 118/52
[2021-07-09] MEDS: TRAMADOL HCL 50 MG TAB PO PRN (15:08)
== END 2021-07-09 15:15 | disposition hospice, home (50) | DRG 393 ==
LOC: ER 15:52 → ERHOLD 17:48 → ER 18:25 → MED/SURG 18:58
PROVIDERS: ADMIT Internal Medicine; ATTEND Internal Medicine
PROC: 30233N1 Transfusion of Nonautologous Red Blood Cells into Peripheral Vein, Percutaneous Approach (ICD-10-PCS; principal; 2021-07-06)
DX: K64.9 Unspecified hemorrhoids (principal); E43 Unspecified severe protein-calorie malnutrition; K72.00 Acute and subacute hepatic failure without coma; K76.6 Portal hypertension; Z68.1 Body mass index [BMI] 19.9 or less, adult; E87.2 Acidosis; D69.6 Thrombocytopenia, unspecified; K72.90 Hepatic failure, unspecified without coma; F10.10 Alcohol abuse, uncomplicated; D50.0 Iron deficiency anemia secondary to blood loss (chronic); R53.81 Other malaise; E78.5 Hyperlipidemia, unspecified; I10 Essential (primary) hypertension; K70.31 Alcoholic cirrhosis of liver with ascites; Z20.822 Contact with and (suspected) exposure to COVID-19; Z90.49 Acquired absence of other specified parts of digestive tract; Z88.0 Allergy status to penicillin; Z88.8 Allergy status to other drugs, medicaments and biological substances; Z91.19 Patient's noncompliance with other medical treatment and regimen
CPT/HCPCS: 36415; 71045; 80053; 82140; 82550; 82553; 82607; 82728; 82746; 83540; 83735; 84466; 84484; 85025; 85045; 85610; 86850; 86900; 86920; 93005; 93306; 97139; 99251; 99284; J1940; J3411; J3430; J7030; J7040; J7042; J7050; P9016; U0002